=== PATIENT | female | born 1955 | race Hispanic/Latino ===

== ENCOUNTER 2024-01-06 14:56 | Emergency (ER) | payer OTHER ==
[~2024-01-06] VITALS: Ht 154.9 cm; Wt 77.1 kg
[2024-01-06 15:30] LABS: APPEARANCE,URINE CLEAR (CLEAR); BILIRUBIN,URINE NEGATIVE (NEGATIVE); COLOR,URINE LIGHT-YELLOW (YELLOW); GLUCOSE, URINE (UA) NEGATIVE (NEGATIVE); KETONES,URINE NEGATIVE (NEGATIVE); LEUKOCYTE ESTERASE ,URINE NEGATIVE Leu/uL (NEGATIVE); NITRATE,URINE NEGATIVE (NEGATIVE); OCCULT BLOOD,URINE NEGATIVE (NEGATIVE); PH,URINE 6.5 (5.0-8.0); PROTEIN,URINE NEGATIVE (NEGATIVE); UROBILINOGEN,URINE 0.2 mg/dL (0.2-1.0)
[2024-01-06] MEDS: KETOROLAC 15MG/ML VIAL (15MG/ML) IM ONE (15:30)
[2024-01-06] MEDS ORDERED: KETOROLAC 15MG/ML VIAL (15MG/ML) IV ONE (15:30)
[2024-01-06 15:33] LABS: ADD UA MICROSCOPIC NO
[2024-01-06 15:35] LABS: BASOPHILS # (AUTO) 0.03 K/uL (0.00-0.20); BASOPHILS % (AUTO) 0.4 % (0.0-5.0); EOSINOPHILS # (AUTO) 0.04 K/uL (0.00-0.70); EOSINOPHILS % (AUTO) 0.5 % (0.0-8.0); HEMATOCRIT 36.6 % (36-48); IMMATURE GRANULOCYTE ABSOLUTE 0.02 K/uL (0-1); LYMPHOCYTES % (AUTO) 23.4 % (21.0-51.0); MEAN CORPUSCULAR HEMOGLOBIN 31.5 pg (27.0-33.0); MEAN CORPUSCULAR HGB CONC 34.7 g/dL (32.0-36.0); MEAN CORPUSCULAR VOLUME 90.8 fL (79-99); MONOCYTES # (AUTO) 0.7 K/uL (0.1-1.0); MONOCYTES % (AUTO) 8.2 % (3.0-13.0); NEUTROPHILS # (AUTO) 5.7 K/uL (1.8-7.7); NEUTROPHILS % (AUTO) 67.3 % (40.0-77.0); PLATELET COUNT (AUTO) 281 K/uL (130-400); RED BLOOD CELL COUNT(AUTO) 4.03 MIL/uL (4.00-5.50); RED CELL DISTRIBUTION WIDTH 12.5 % (11.0-15.5); WHITE BLOOD COUNT (AUTO) 8.4 K/uL (4.8-10.8)
[2024-01-06 15:51] LABS: ALBUMIN 3.7 g/dL (3.5-5.0); BILIRUBIN,TOTAL 0.4 mg/dL (0.2-1.0); CREATININE 0.7 mg/dL (0.5-1.0); POTASSIUM 3.1 mmol/L (3.5-5.1); TOTAL PROTEIN, SERUM 7.6 g/dL (6.0-8.3)
[2024-01-06] MEDS: POTASSIUM BICARB/CIT AC 25 MEQ TABLET.EFF ONE (17:22)
[2024-01-06] MEDS ORDERED: PHEN-847 PO (17:23)
[2024-01-06 17:28] VITALS: BP 152/74; PULSE 82; RESP 18; O2SAT 97
[2024-01-06] MEDS ORDERED: POTASSIUM BICARB/CIT AC 25 MEQ TABLET.EFF PO SCH (17:30)
== END 2024-01-06 17:35 | disposition home or self-care (01) ==
LOC: EDH 14:56
DX: E87.6 Hypokalemia (principal); R30.0 Dysuria; E78.00 Pure hypercholesterolemia, unspecified; I10 Essential (primary) hypertension; Z88.1 Allergy status to other antibiotic agents; Z88.2 Allergy status to sulfonamides; Z88.8 Allergy status to other drugs, medicaments and biological substances; Z98.890 Other specified postprocedural states
CPT/HCPCS: 99283; 80053; 83690; 85025; 81003; 36415; 96372; J1885

== ENCOUNTER 2024-12-18 12:09 | Inpatient (IN) | payer OTHER ==
[~2024-12-18] VITALS: Ht 152.4 cm; Wt 81.7 kg
[~2024-12-18 12:09] MED LIST: PHEN-847 PO
[2024-12-18] MEDS ORDERED: DiphenhydrAMINE HCL 25 MG CAPSULE PO PRN (12:30)
[2024-12-18] MEDS ORDERED: ondanSETRON 4MG INJ IVP PRN (12:30)
[2024-12-18] MEDS ORDERED: HYDROcodone/APAP 5/325 1 TAB TABLET PO PRN (12:30)
[2024-12-18] MEDS ORDERED: NITROGLYCERIN 0.4 MG SL TAB SL PRN (12:30)
[2024-12-18] MEDS ORDERED: guaiFENesin-DM 200/20MG 10ML PO PRN (12:30)
[2024-12-18] MEDS ORDERED: ZOLPidem TARTrate 5 MG TAB PO PRN (12:30)
[2024-12-18 13:09] LABS: HEMATOCRIT 37.2 % (36-48); IMMATURE GRANULOCYTE ABSOLUTE 0.03 K/uL (0-1); LYMPHOCYTES # (AUTO) 0.7 K/uL (1.0-4.8); LYMPHOCYTES % (AUTO) 11.4 % (21.0-51.0); MEAN CORPUSCULAR HEMOGLOBIN 31.7 pg (27.0-33.0); MEAN CORPUSCULAR HGB CONC 33.9 g/dL (32.0-36.0); MEAN CORPUSCULAR VOLUME 93.5 fL (79-99); MONOCYTES # (AUTO) 0.1 K/uL (0.1-1.0); MONOCYTES % (AUTO) 1.9 % (3.0-13.0); NEUTROPHILS # (AUTO) 4.9 K/uL (1.8-7.7); NEUTROPHILS % (AUTO) 86.2 % (40.0-77.0); PLATELET COUNT (AUTO) 273 K/uL (130-400); RED BLOOD CELL COUNT(AUTO) 3.98 MIL/uL (4.00-5.50); RED CELL DISTRIBUTION WIDTH 12.3 % (11.0-15.5); WHITE BLOOD COUNT (AUTO) 5.7 K/uL (4.8-10.8)
[2024-12-18 13:22] LABS: CARBON DIOXIDE 27 mmol/L (21-32); CHLORIDE 103 mmol/L (101-111); CREATININE 0.7 mg/dL (0.5-1.0); GLOMERULAR FILTR. RATE CALC 93 mL/min (>90); GLUCOSE,RANDOM 160 mg/dL (70-105); SODIUM SERUM 139 mmol/L (136-145); UREA NITROGEN, BLOOD 15 mg/dL (7-18)
[2024-12-18 13:31] LABS: ALANINE AMINOTRANSFERASE 25 U/L (12-78); ALBUMIN 3.8 g/dL (3.5-5.0); ASPARTATE AMINOTRANSFERASE 17 U/L (10-37); BILIRUBIN,DIRECT 0.1 mg/dL (0.0-0.3); BILIRUBIN,TOTAL 0.3 mg/dL (0.2-1.0); CREATINE KINASE, TOTAL 36 U/L (21-232); TOTAL PROTEIN, SERUM 7.8 g/dL (6.0-8.3)
[2024-12-18] MEDS ORDERED: OLME5TAB29 PO (13:39)
[2024-12-18] MEDS ORDERED: ALEN70TA80 PO (13:39)
[2024-12-18] MEDS ORDERED: GABA-529 PO (13:39)
--- NOTE | 2024-12-18 14:01 | HMCIMG ---
Exam Type: CERV SPINE 2-3VWS Clinical Information: PAIN Comparison: None Findings and impression: Straightening consistent with spasm. Status post anterior fusion and disc fusion C3-C6 with adequate postoperative alignment. No fractures or acute complications.
--- NOTE | 2024-12-18 14:03 | HMCIMG ---
Exam Type: THORACIC SPINE SERIES 3 views History: PAIN Comparison: none Findings: Spondylitic and degenerative changes of the dorsal spine are seen. There are degenerative changes of the apophyseal joints as well. The disc spaces are preserved. No fractures or dislocations are noted. No paraspinal soft tissue abnormalities are seen. Impression: 1. DEGENERATIVE CHANGES OF THE SPINE. NO ACUTE FRACTURES OR DISLOCATIONS NOTED AT THIS TIME.
[2024-12-18 14:11] VITALS: BP 162/89; PULSE 84; RESP 14; TEMP 98.8
[2024-12-18] MEDS: acetaMINOPHEN 325 MG TAB PO PRN (14:26)
[2024-12-18] MEDS: BACLOFEN 10 MG TABLET PO SCH (14:26)
[2024-12-18] MEDS: cloNIDine HCL 0.1 MG TABLET PO PRN (14:26)
[2024-12-18] MEDS: 1/2 NS 1000ML 1,000 ML IV SCH (14:26)
[2024-12-18 15:49] VITALS: BP 111/61; PULSE 80; RESP 19; TEMP 98.1
--- NOTE | 2024-12-18 16:49 | NUR ---
DCP: HOME Pt currently lives with Phill Lundy [phone]. Pt does not have any DME, home health, or provider services. Pt is able to complete ADLs independently. PCP is Dr. Rolan Nayak. At [place] pt will return home and family will assist with transportation. Addendum: 12/18/24 at 1651 by CORTEZ BRINK SS Amended: Links added.
[2024-12-18 19:46] LABS: CREATINE KINASE, TOTAL 31 U/L (21-232)
--- NOTE | 2024-12-18 20:01 | HP ---
HISTORY OF PRESENT ILLNESS: The patient is direct admission from my office. The patient came complaining of chest pain since last night, associated with shortness of breath and increase in blood pressure. The patient referred that the pain started at midnight, initially started on upper back pain, radiated to her anterior chest, was unable to tolerate. She was almost going to the Emergency Room, decided to wait to come to my office. ALLERGIES: LISINOPRIL, BACTRIM, CELEBREX, AND ROCEPHIN. PAST MEDICAL HISTORY: Hypertension, dyslipidemia, osteoporosis, peripheral neuropathy, and dorsalgia. MEDICATIONS: Include baclofen 5 mg, pantoprazole, rosuvastatin, olmesartan 5, gabapentin, hydrocodone/acetaminophen, and alendronate. PHYSICAL EXAMINATION: GENERAL: She is currently awake, alert, and oriented to person and place, in distress due to pain. VITAL SIGNS: Blood pressure 144/80, pulse 103, respirations 16, and temperature 98.4. HEENT: Normocephalic and atraumatic. LUNGS: Clear to auscultation. HEART: S1 and S2 are distant. ABDOMEN: Soft and nontender. No masses. EXTREMITIES: No clubbing or cyanosis. NEUROLOGIC: Cranial nerves 2 through 12 are grossly preserved. IMAGING DATA: EKG shows normal sinus rhythm, [address] per minute. No acute ST-T changes. ASSESSMENT AND PLAN: * Chest pain. The patient with cardiovascular risk factors. She will be admitted for assessment of chest pain. Start her on standard treatment for acute coronary syndrome with aspirin, Plavix, and Lovenox. Cardiac enzymes every 6 hours x 3. Lexiscan stress test in the a.m. when stable. * Hypertension. Continue with her home medications. Reassess with results. * Dyslipidemia. Continue rosuvastatin. * Upper back pain. X-ray of the cervical spine and thoracic spine will be requested. Continue with analgesics and muscle relaxants. TID: [id number] RECEIPT: [id number]
[2024-12-18] MEDS: ENOXAPARIN SODIUM 80 MG/0.8 ML SQ SCH (20:36)
[2024-12-19] VITALS (7 sets, daily range): BP systolic 108–145; BP diastolic 56–78; PULSE 50–76; RESP 16–18; TEMP 97.7–98.6; O2SAT 98
[2024-12-19] MEDS ORDERED: ROSU20TA98 PO (00:21)
[2024-12-19] MEDS ORDERED: PANT40TA54 PO (00:21)
[2024-12-19] MEDS ORDERED: BACL5TAB PO (00:21)
[2024-12-19] MEDS ORDERED: HYDR-4060 PO (00:21)
[2024-12-19 01:12] LABS: BASOPHILS # (AUTO) 0.01 K/uL (0.00-0.20); BASOPHILS % (AUTO) 0.2 % (0.0-5.0); EOSINOPHILS # (AUTO) 0.01 K/uL (0.00-0.70); EOSINOPHILS % (AUTO) 0.2 % (0.0-8.0); HEMATOCRIT 29.5 % (36-48); IMMATURE GRANULOCYTE ABSOLUTE 0.01 K/uL (0-1); LYMPHOCYTES # (AUTO) 1.3 K/uL (1.0-4.8); LYMPHOCYTES % (AUTO) 22.2 % (21.0-51.0); MEAN CORPUSCULAR HEMOGLOBIN 32.4 pg (27.0-33.0); MEAN CORPUSCULAR HGB CONC 35.3 g/dL (32.0-36.0); MEAN CORPUSCULAR VOLUME 91.9 fL (79-99); MONOCYTES # (AUTO) 0.8 K/uL (0.1-1.0); MONOCYTES % (AUTO) 12.8 % (3.0-13.0); NEUTROPHILS # (AUTO) 3.8 K/uL (1.8-7.7); NEUTROPHILS % (AUTO) 64.4 % (40.0-77.0); PLATELET COUNT (AUTO) 218 K/uL (130-400); RED BLOOD CELL COUNT(AUTO) 3.21 MIL/uL (4.00-5.50); RED CELL DISTRIBUTION WIDTH 12.5 % (11.0-15.5); WHITE BLOOD COUNT (AUTO) 5.9 K/uL (4.8-10.8)
[2024-12-19 01:29] LABS: ALANINE AMINOTRANSFERASE 19 U/L (12-78); ASPARTATE AMINOTRANSFERASE 13 U/L (10-37); BILIRUBIN,DIRECT 0.1 mg/dL (0.0-0.3); BILIRUBIN,TOTAL 0.3 mg/dL (0.2-1.0); CARBON DIOXIDE 31 mmol/L (21-32); CHLORIDE 105 mmol/L (101-111); CREATINE KINASE, TOTAL 32 U/L (21-232); CREATININE 0.6 mg/dL (0.5-1.0); GLOMERULAR FILTR. RATE CALC 97 mL/min (>90); GLUCOSE,RANDOM 134 mg/dL (70-105); POTASSIUM 3.9 mmol/L (3.5-5.1); SODIUM SERUM 141 mmol/L (136-145); TOTAL PROTEIN, SERUM 6.3 g/dL (6.0-8.3); UREA NITROGEN, BLOOD 15 mg/dL (7-18)
--- NOTE | 2024-12-19 06:45 | NUR ---
DEON SCAN DELAY I WALKED INTO THE ROOM TO DO BEDSIDE REPORT, PATIENT WAS DRINKING CUP OF COFFEE AND EATING BREAKFAST. DR. DAMON AND NUCLEAR MED MADE AWARE AND POSTPONED DEON SCAN TILL TOMORROW IN THE MORNING
[2024-12-19] MEDS: PANTOPrazole 40 MG TAB DR PO SCH (08:11)
[2024-12-19] MEDS: ASPIRIN 81MG CHEW TAB PO SCH (08:12)
[2024-12-19] MEDS: LoSARTan 100 MG TABLET PO SCH (08:12)
[2024-12-19] MEDS: cloPIDOgrel 75MG TAB PO SCH (08:12)
--- NOTE | 2024-12-19 08:41 | NUR ---
AMARILIS OTT @ 0800HRS ISAMAR WALEDN IS AWARE; PT WAS NOT NPO AND HAD COFFEE. EXAM WAS EXPLAINED TO THE PT AND EXAM WILL BE R/S FOR 12/20/2024 @ 0630HRS
--- NOTE | 2024-12-19 08:48 | EKG ---
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
--- NOTE | 2024-12-19 14:27 | HMCIMG ---
Exam Type: CT cervical spine without contrast Clinical Information: CERVICAL PAIN Comparison: None Technique: Spiral axial images were performed from the base of the skull down to the thoracic vertebral bodies. Both sagittal and coronal reconstructions were performed. CT Dose Index (CTDI): 12.85 mGy Dose Length Product (DLP): 282.6 total Findings: There are degenerative changes. Degenerative disc disease is noted at multiple levels. Status post anterior fusion and disc fusion C3-C6. There is adequate alignment and preservation of normal cervial lordosis. There is facet hypertrophy at multiple levels. IMPRESSION: Degenerative and postoperative changes as noted. No acute pathology. No fractures seen. This study was performed using dose reduction techniques to include automated exposure control and/or adjustment of the mA and/or kV according to patient size.
--- NOTE | 2024-12-19 23:46 | PN ---
SUBJECTIVE: The patient is feeling improved though there is still persistent chest pain. The patient is scheduled to have a Lexiscan tomorrow. She is still complaining of persistent upper back pain and had an x-ray of the neck and thoracic spine. OBJECTIVE: GENERAL: She is currently awake, alert and oriented to person, time, and place, not in distress. VITAL SIGNS: Blood pressure is 116/56, pulse 68, respirations 18. HEENT: Normocephalic, atraumatic. LUNGS: Clear to auscultation. HEART: S1, S2 are distant. ABDOMEN: Soft, nontender. No masses. EXTREMITIES: No clubbing or cyanosis. LABORATORY DATA AND X-RAYS: Cervical spine x-ray shows degenerative and postoperative changes. No acute pathology. No fracture seen. Thoracic spine x-rays show degenerative changes. No fracture or dislocation. Labs; WBC count 5.9, hemoglobin 10.4, platelets 218, sodium 141, potassium 3.9, BUN 15, creatinine 0.6, glucose 134, calcium 8.3, troponin within normal limits 3 times. ASSESSMENT AND PLAN: * Chest pain. Negative troponins. The patient is scheduled to have a Lexiscan stress test tomorrow. * Cervical spine pain. X-ray is within normal limits. We are going to have an MRI of the cervical spine. * Hypertension, controlled. * Dyslipidemia, controlled. Follow up with results of tests. TID: [id number] RECEIPT: [id number]
[2024-12-20] VITALS (7 sets, daily range): BP systolic 126–164; BP diastolic 64–87; PULSE 62–73; RESP 17–18; TEMP 98–98.9; O2SAT 98
[2024-12-20 04:09] LABS: HEMATOCRIT 30.9 % (36-48); MEAN CORPUSCULAR HEMOGLOBIN 31.3 pg (27.0-33.0); MEAN CORPUSCULAR VOLUME 92.2 fL (79-99); RED BLOOD CELL COUNT(AUTO) 3.35 MIL/uL (4.00-5.50); WHITE BLOOD COUNT (AUTO) 6.1 K/uL (4.8-10.8)
[2024-12-20 04:20] LABS: CREATININE 0.6 mg/dL (0.5-1.0); POTASSIUM 3.8 mmol/L (3.5-5.1)
[2024-12-20] MEDS ORDERED: REGADENOSON 0.4 MG/5 ML PF SYG IVP ONE (08:04)
--- NOTE | 2024-12-20 13:23 | HMCSR ---
APPROVED REPORT Height: 5 ft 0in Weight: 180 lbs TEST INDICATIONS ACS The imaging protocol used to acquire images was Rest Tc-99m/stress Tc-99m 1 day Consent: The procedure was explained and understood by the patient. Informerd consent was witnessed Ashley Cui RN First, low dose rest was performed then high dose stress. RESTING DATA: The resting ekg shows: NSR Rest SPECT myocardial perfusion imaging was performed in supine position minutes following the intra venous injection of 11 mCi of Tc-99 Sestamibi. Time of rest injection: Date: 12/20/2024 Time of rest imaging: Date: 12/20/2024 PHARMACOLOGIC STRESS: Pharmacologic stress test was performed by injecting regadenoson 0.4 mg IV push followed by the intra venous injection of 29 mCi of Tc-99 Sestamibi. Time of stress injection: Date: 12/20/2024 Time of stress imaging: Date: 12/20/2024 Heart Rate at time of stress injection: 61 bpm. The images were gated to evaluate regional wall motion and calculate left ventricular ejection fracti on. STRESS DETAILS Reason for Termination: Infusion complete Stress Symptoms: Dyspnea Max HR Achieved: 99 bpm % of APMHR Achieved: 77 Max Blood Pressure: 153/78 mmHg Stress ECG: NSR Arrhythmia: No. ST Change: No. Study quality was good. Lung uptake was Normal. Artifact: No artifact LEFT VENTRICLE Size: The left ventricular size is normal. Systolic Function:The left ventricular systolic function is normal. Wall Motion: No regional wall motion abnormalities noted. The left ventricular ejection fraction was calculated to be 84%.TID = 1.03. LV PERFUSION Mid septal wall with small size mild severity reversible perfusion defect. RV Size/Shape Not well visualized. IMPRESSION Mildly abnormal pharmacologic nuclear stress test. Global LV Function: Normal Stress ECG Summary: Normal LV Perfusion Summary: Abnormal LV Viability Summary: Potentially viable myocardium Conclusion Stress LVEF 84% No ECG changes of ischemia Mid septal wall with small size mild severity reversible perfusion defect. Overall, low risk for cardiac events
--- NOTE | 2024-12-20 22:21 | CONS ---
CONSULT NOTE: CARDIOLOGY Reason for consult: Chest pain HPI/story at presentation: This is a pleasant 69-year-old female with past medical history as were present with complaints of chest discomfort to the emergency room. She was having atypical pressure-like sensation in the left side of her chest, nonradiating and nonexertional. She underwent stress testing that was read as low risk and cardiology was consulted for further evaluation and management. Subjective: 12/20/2024 no active chest pain Past medical history: See below Allergies, Meds See chart Review of systems Review of Systems Constitutional: Negative for chills and fever. HENT: Negative for ear discharge and ear pain. Eyes: Negative for photophobia and discharge. Respiratory: Negative for cough, sputum production and stridor. Cardiovascular: Negative for chest pain and palpitations. Gastrointestinal: Negative for diarrhea and vomiting. Genitourinary: Negative for frequency. Musculoskeletal: Negative for myalgias. Skin: Negative for rash. Neurological: Negative for focal weakness and seizures. Endo/Heme/Allergies: Negative for polydipsia. Psychiatric/Behavioral: Negative for hallucinations. Vitals see chart PHYSICAL EXAMINATION GENERAL: The patient is alert and oriented*3 HEENT: Nonicteric sclerae, non traumatic HEART: Regular rate and rhythm with no murmurs LUNGS: Clear to auscultation bilaterally ABDOMEN: No acute issues, non tender GENITAL, RECTAL: deferred SKIN: No rash NEUROLOGIC: NFND EXTREMITIES: No edema ASSESSMENT CHEST PAIN Atypical presentation Negative stress test, 12/2024 Low risk Nonexertional Negative troponins HYPERTENSION, HYPERLIPIDEMIA CORE MEASURES Not applicable OTHER MEDICAL PROBLEMS Reviewed PLAN 12/20/2024 we will get an echocardiogram to rule out known coronary etiology of chest discomfort. Reviewed stress images as well and appears to be moderate area of mild decreased tracer uptake in the anterior wall. Given nature of symptoms, we will also proceed with CTA coronary to further evaluate chest discomfort prior to discharge. Seen and examined 12/09/2024 around 9 PM. ATTESTATION I was involved substantially in the care of this patient Number and complexity of problems addressed: 1 acute illness with systemic features Amount and or complexity of data Review of prior external note(s) from each unique source: 2+ Ordering of each unique test : 0 Review of the result(s) of each unique test: 2+ Assessment requiring an independent historian(s): No Independent interpretation of test performed by another MD/QHCP/appropriate source (not separately reported) : No Discussion of management or test interpretation with external MD/QHCP/appropriate source (not separately reported) : No Risk status (cardiac, billing related): Moderate CLAUDIA ACOSTA MD Dec 20, 2024 22:21
[2024-12-21] VITALS (8 sets, daily range): BP systolic 135–160; BP diastolic 64–94; PULSE 61–84; RESP 18–20; TEMP 97.9–98.8; O2SAT 93–97
--- NOTE | 2024-12-21 00:18 | PN ---
SUBJECTIVE: The patient is comfortable, afebrile. No chest pain or palpitations. No nausea or vomiting. Neck pain is still persistent, but mild. Currently, she has had a Lexiscan stress test, pending results. OBJECTIVE: GENERAL: She is awake, alert, and oriented to person, time and place. VITAL SIGNS: Blood pressure 128/65, pulse 73, respirations 18. HEENT: Normocephalic, atraumatic. LUNGS: Clear to auscultation. HEART: S1, S2 are distant. ABDOMEN: Soft, nontender. EXTREMITIES: No clubbing or cyanosis. LABORATORY DATA: Lexiscan stress test pending. Cervical spine CT scan was reported as degenerative and postoperative changes. No acute pathology. No fracture seen. Status post anterior fusion and disk fusion C3-C6. ASSESSMENT AND PLAN: * Chest pain. Pending results of Lexiscan stress test. Plan to discharge if negative. * Cervical spine pain. Negative x-ray as well as CT scan. Continue to monitor. * Hypertension, controlled. * Dyslipidemia, controlled. * Plan to discharge if things are stable. TID: [id number] RECEIPT: [id number]
[2024-12-21] MEDS ORDERED: IOHEXOL 350 MG/ML 100ML INFUS..BTL IV ONE (10:12)
[2024-12-21] MEDS ORDERED: metoPROLOL tartRATE 1 MG/ML 5ML VIAL IV ONE (10:17)
--- NOTE | 2024-12-21 11:28 | HMCIMG ---
CT calcium scoring Clinical Information: CP Comparison: None CT Dose Index (CTDI): 13.30 mGy Dose Length Product (DLP): 186.18 total mGy-cm Findings: Calcium score 0. No identifiable calcification. The CT scan is not a complete chest CT. Covered portion is reviewed for incidental findings. No incidental findings seen. IMPRESSION: Calcium score as above. Calcium score reference stable: 0: No identifiable calcification 1- 10: Minimal identifiable calcification 11-100: Mild calcification 101- 400: Moderate calcification 401 and above: Significant calcification Automated exposure control and adequate statistical iterative reconstructions were utilized as dose reduction techniques.
--- NOTE | 2024-12-21 21:36 | HMCSR ---
APPROVED REPORT EXAM: Two-dimensional and M-mode echocardiogram with Doppler and color Doppler. INDICATION ICD: Chest Pain 2D Dimensions RVDd3.4 cmLVEF(%)26.6 (>50%)LVED Vol(simp.)74.0 mL IVSd0.9 (0.7-1.1cm)FS(%)12 %LVES Vol(simp.)30.0 mL LVDd3.1 (3.8-5.6cm)LA (2D)2.9 (1.6-4.0cm)LVEF(%, simp.)59 % PWd1.0 (0.7-1.1cm)Ao Root(2D)2.1 (2.0-3.7cm)LA ESV INDEX (BP)21.23 mL/m2 LVDs2.7 (2.5-4.0cm)LVOT diam2.0 (1.8-2.4cm) IVC diam0.9 cm Deformation Strain Apical 4-19.7 % Apical 2-19.1 % Apical 3-22.5 % Global Strain-20.4 % M-Mode Dimensions LA (MM)2.7 (1.6-4.0cm) Ao Root(MM)2.0 (2.0-3.7cm) Aortic Valve AoV Vmax1.4 m/Yasmine Peak GR8.3 mmHgLVOT Vmax1.1 m/s AoV VTI0.3 mAo Mean GR4.1 mmHgLVOT VTI0.25 m CE (VMAX)2.41 cm2AVA (VTI) 2.5 cm2 Mitral Valve MV E Vmax74.6 cm/sDECEL Ckfm347 ms MV A Vmax93.3 cm/sP 1/2 T57 ms E/A ratio0.8MVA (PHT)3.9 cm2 TDI E/E' Medial8.0E/E' Lateral5.8 Medial E' Peak V9.28 cm/sLateral E' Peak V12.96 cm/s Pulmonary Valve PV Vmax1.3 m/sPV VTI0.26 mPV Mean GR3.2 mmHg PV Peak GR6.5 mmHg Tricuspid Valve TR Vmax2.0 m/sRVSP16.8 mmHg TR Peak GR16.8 mmHg Left Ventricle The left ventricle is normal size. Normal wall motion There is normal left ventricular wall thickness . LVEF is 55-60%. The left ventricular diastolic function is normal. Right Ventricle The right ventricle is normal size. The right ventricular systolic function is normal. Atria The left atrium size is normal. The right atrium size is normal. Aortic Valve Aortic valve is not well visualized but no significant valvular abnormalities noted. No aortic regurg itation is present. There is no aortic valvular stenosis. Mitral Valve The mitral valve is normal in structure. Mitral regurgitation is trace. There is no mitral valve sten osis. Tricuspid Valve The tricuspid valve is normal in structure. There is trivial tricuspid valve regurgitation noted. Pulmonic Valve The pulmonary valve is not well seen There is no pulmonic valvular regurgitation. Great Vessels The aortic root is normal in size. The IVC is normal in size and collapses >50% with inspiration. Pericardium There is no pericardial effusion. Conclusion LVEF is 55-60%. The left ventricular diastolic function is normal. There is normal left ventricular wall thickness. The left ventricle is normal size. Normal wall motion There is no pericardial effusion. Normal pulmonary pressures Study quality was adequate
--- NOTE | 2024-12-21 21:46 | PN ---
CARDIOLOGY Reason for consult: Chest pain HPI/story at presentation: This is a pleasant 69-year-old female with past medical history as were present with complaints of chest discomfort to the emergency room. She was having atypical pressure-like sensation in the left side of her chest, nonradiating and nonexertional. She underwent stress testing that was read as low risk and ca rdiology was consulted for further evaluation and management. Subjective: 12/20/2024 no active chest pain 12/21/2024 no complaints Past medical history: See below Allergies, Meds See chart Review of systems Review of Systems Constitutional: Negative for chills and fever. HENT: Negative for ear discharge and ear pain. Eyes: Negative for photophobia and discharge. Respiratory: Negative for cough, sputum production and stridor. Cardiovascular: Negative for chest pain and palpitations. Gastrointestinal: Negative for diarrhea and vomiting. Genitourinary: Negative for frequency. Musculoskeletal: Negative for myalgias. Skin: Negative for rash. Neurological: Negative for focal weakness and seizures. Endo/Heme/Allergies: Negative for polydipsia. Psychiatric/Behavioral: Negative for hallucinations. Vitals see chart PHYSICAL EXAMINATION GENERAL: The patient is alert and oriented*3 HEENT: Nonicteric sclerae, non traumatic HEART: Regular rate and rhythm with no murmurs LUNGS: Clear to auscultation bilaterally ABDOMEN: No acute issues, non tender GENITAL, RECTAL: deferred SKIN: No rash NEUROLOGIC: NFND EXTREMITIES: No edema ASSESSMENT CHEST PAIN Atypical presentation Negative stress test, 12/2024 Low risk Nonexertional Negative troponins HYPERTENSION, HYPERLIPIDEMIA CORE MEASURES Not applicable OTHER MEDICAL PROBLEMS Reviewed PLAN 12/20/2024 we will get an echocardiogram to rule out known coronary etiology of chest discomfort. Reviewed stress images as well and appears to be moderate area of mild decreased tracer uptake in the anterior wall. Given nature of symptoms, we will also proceed with CTA coronary to further evaluate chest discomfort prior to discharge. Seen and examined 12/09/2024 around 9 PM. 12/21/2024 Doing well, asymptomatic, echocardiogram was normal, CTA coronary with mild disease and was otherwise normal. CT calcium score was reported as 0, however, this is inaccurate. This is likely less than 100. Heart flow study still pending. If this is negative, can likely be discharged home tomorrow. Seen and examined 12/21/2024 at around 8 PM. ATTESTATION I was involved substantially in the care of this patient Number and complexity of problems addressed: 1 acute illness with systemic features Amount and or complexity of data Review of prior external note(s) from each unique source: 2+ Ordering of each unique test : 0 Review of the result(s) of each unique test: 2+ Assessment requiring an independent historian(s): No Independent interpretation of test performed by another MD/QHCP/appropriate source (not separately reported) : No Discussion of management or test interpretation with external MD/QHCP/appropriate source (not separately reported) : No Risk status (cardiac, billing related): Moderate Vitals/Labs Vital Signs Date Time Temp Pulse Resp B/P (MAP) Pulse Ox O2 Delivery O2 Flow Rate FiO2 12/21/24 20:00 97.9 71 20 149/76 93 Room Air 12/21/24 16:00 21 12/21/24 08:00 0 Medications Current Medications Diphenhydramine HCl 25 mg Q4HPRN PRN PO; Start 12/18/24 at 12:30; Stop 01/17/25 at 12:29 Acetaminophen 650 mg Q6H PRN PO Last administered on 12/20/24at 09:10; Start 12/18/24 at 12:30; Stop 01/17/25 at 12:29 Ondansetron HCl 4 mg Q6H PRN IVP; Start 12/18/24 at 12:30; Stop 01/17/25 at 12:29 Zolpidem Tartrate 5 mg HS PRN PO; Start 12/18/24 at 12:30; Stop 01/17/25 at 12:29 Nitroglycerin 0.4 mg AD PRN SL; Start 12/18/24 at 12:30; Stop 01/17/25 at 12:29 Guaifenesin/ Dextromethorphan 10 ml Q4H PRN PO; Start 12/18/24 at 12:30; Stop 01/17/25 at 12:29 Aspirin 81 mg DAILY PO Last administered on 12/21/24at 09:33; Start 12/19/24 at 09:00; Stop 01/18/25 at 08:59 Clopidogrel Bisulfate 75 mg DAILY PO Last administered on 12/21/24at 09:33; Start 12/19/24 at 09:00; Stop 01/18/25 at 08:59 Enoxaparin Sodium 80 mg BID SQ Last administered on 12/21/24at 20:09; Start 12/18/24 at 21:00; Stop 01/17/25 at 20:59 Acetaminophen/ Hydrocodone Bitart 1 tab Q8H PRN PO; Start 12/18/24 at 12:30; Stop 12/23/24 at 12:29 Baclofen 10 mg TID PO Last administered on 12/21/24at 20:08; Start 12/18/24 at 14:00; Stop 01/17/25 at 13:59 Pantoprazole Sodium 40 mg DAILY PO Last administered on 12/21/24at 09:33; Start 12/19/24 at 09:00; Stop 01/18/25 at 08:59 Losartan Potassium 100 mg DAILY PO Last administered on 12/21/24at 09:32; Start 12/19/24 at 09:00; Stop 01/18/25 at 08:59 Sodium Chloride 1,000 ml @ 30 mls/hr Q24H IV Last administered on 12/21/24at 13:15; Start 12/18/24 at 12:30; Stop 01/17/25 at 12:29 Clonidine HCl 0.1 mg Q4H PRN PO Last administered on 12/18/24at 14:26; Start 12/18/24 at 14:30; Stop 01/17/25 at 14:29 Regadenoson 0.4 mg STK-MED ONCE IVP; Start 12/20/24 at 08:04; Stop 12/20/24 at 08:04; Status DC Iohexol 35,000 mg STK-MED ONCE IV; Start 12/21/24 at 10:12; Stop 12/21/24 at 10:12; Status DC Metoprolol Tartrate 5 mg STK-MED ONCE IV; Start 12/21/24 at 10:17; Stop 12/21/24 at 10:17; Status DC CLAUDIA ACOSTA MD Dec 21, 2024 21:46
[2024-12-22 04:00] VITALS: BP 102/62; PULSE 70; RESP 20; TEMP 98
--- NOTE | 2024-12-22 07:14 | NUR ---
Dr. Fong rounding on patient. Patient to be discharged once Dr. Damon clears for d/c.
[2024-12-22 08:00] VITALS: BP 144/81; PULSE 69; RESP 18; TEMP 98.1
[2024-12-22 08:45] VITALS: O2SAT 98
--- NOTE | 2024-12-22 09:07 | CARDIOLOGY ---
RAD REPORT: [facility] CT ANGIO RADIOLOGY REPORT: CORONARY CT ANGIOGRAPHY DATE: Dec 22, 2024 QUALITY: Excellent CLINICAL HISTORY AND INDICATION: [ ] TECHNIQUE: After obtaining a preliminary metropolitan editor image, contrast imaging performed on an Aquillon [id number] scanner. A dedicated, limited window, coronary imaging protocol was used, with single breath-hold, retrospective ECG gating, and au tomated arrhythmia rejection. 100 cc of low osmolar contrast agent: Omnipaque 350 was delivered via a 18-gauge IV catheter in the right antecubital fossa, using a power injector and followed by 60 cc of normal saline bolus as a chaser. Collimated images were reformatted at 0.5 mm intervals, and sent to an offline independent workstation for interpretation, using 3D anatomic reconstructions: Curved multiplanar reconstructions, maximum intensity projections, and multiplanar imaging. No metoprolol was administered prior to scanning due to low baseline heart rate. 0.4 mg SL nitroglycerin was given. CORONARY ARTERY DESCRIPTIONS: The coronary arteries arise in normal position. Left main coronary artery: Normal caliber vessel that bifurcates into the LAD and LCx. No stenosis. Left anterior descending coronary artery: Normal caliber vessel and gives rise to diagonal and septal branches. Mild prox calcified plaque, mild stenosis Left circumflex coronary artery: Normal caliber, nondominant and gives rise to a large OM branch. Mild stenosis with mild calcified plaque Right coronary artery: Large, dominant vessel giving rise to the PL and PDA branches. No stenosis. CONCLUSION: Mild calcified proximal plaque of the LAD and LCx without significant stenosis CLAUDIA ACOSTA MD Dec 22, 2024 09:07
--- NOTE | 2024-12-22 11:08 | NUR ---
PATIENT ALERT AND ORIENTED X4, BEING DISCHARGED HOME. PATIENT EDUCATED TO FOLLOW UP WITH DR. DAMON AND DR. MCGEE IN 1 WEEK. PRESCRIPTION FOR ASA AND LOSARTAN GIVEN, MEDICATIONS EXPLAINED INCLUDING SIDE EFFECTS, NO OTHER BLOOD THINNERS NEEDED PER DR. MCGEE. PATIENT EDUCATED TO RESUME HOME MEDS EXCEPT OLMESARTAN (PATIENT HAS NEW PRESCRIPTION FOR LOSARTAN). RT AC IV REMOVED WITHOUT COMPLICATIONS. ALL QUESTIONS ANSWERED, PATIENT VERBALIZED COMPLETE UNDERSTANDING. PATIENT GATHERED ALL BELONGINGS AND TOOK WITH HER AT [place]. AWAITING TO SPEAKING UNIT ASSEMBLER PATIENT.
[2024-12-22 11:30] VITALS: BP 122/67; PULSE 69; RESP 18; TEMP 97.4
--- NOTE | 2024-12-22 12:20 | NUR ---
PICKED UP PATIENT AT THIS TIME. PATIENT TOOK ALL BELONGINGS.
--- NOTE | 2024-12-23 00:05 | DS ---
ADMITTING DIAGNOSES: Angina, chest pain, . OTHER DIAGNOSES: Hypertension and lumbar pain. DISCHARGE DIAGNOSES: Chest pain and cardiac workup negative. Hypertension is stable. Rest of the diagnoses stable. CONDITION AT TIME OF DISCHARGE: Stable. DISCHARGE MEDICATIONS: Continue with home medications. HOSPITAL COURSE: The patient was hospitalized with angina. The patient had a cardiac workup done and evaluation by the Cardiology. The patient's condition is stable. Discharged to home. Hypertension is stable. Lumbar pain is stable. TID: [id number] RECEIPT: [id number]
--- NOTE | 2024-12-25 14:44 | NUR ---
Transitional Phone Call Attempted to call twice, left message [phone] and no return call.
== END 2024-12-22 12:20 | disposition home or self-care (01) | DRG 311 ==
LOC: EDH 12:09 → EDHIP 12:10 → 4CH 12-19 00:03
PROVIDERS: ADMIT Internal Medicine; ATTEND Internal Medicine
PROC: 4A12XM4 Monitoring of Cardiac Stress, External Approach (ICD-10-PCS; principal; 2024-12-20)
PROC: 3E073KZ Introduction of Other Diagnostic Substance into Coronary Artery, Percutaneous Approach (ICD-10-PCS; 2024-12-20)
DX: I20.9 Angina pectoris, unspecified (principal); M54.6 Pain in thoracic spine; M81.0 Age-related osteoporosis without current pathological fracture; G62.9 Polyneuropathy, unspecified; I10 Essential (primary) hypertension; E78.5 Hyperlipidemia, unspecified; M54.50 Low back pain, unspecified
CPT/HCPCS: 36415; 72040; 72072; 72125; 75574; 78452; 80048; 80053; 80076; 82550; 84484; 85025; 85027; 93005; 93017; 93306; 93356; 99285; A9500; G0378; J1650; J2785; J3490; Q9967

== ENCOUNTER → 2025-01-15 | Outpatient (CLI) | payer OTHER ==
[~2025-01-15] MED LIST changes: +ALEN70TA80 PO; +BACL5TAB PO; +GABA-529 PO; +HYDR-4060 PO; +PANT40TA54 PO; -PHEN-847 PO; +ROSU20TA98 PO
--- NOTE | 2025-01-16 06:49 | HMCIMG ---
EXAMINATION: DUPLEX ULTRASOUND EXAMINATION OF THE BILATERAL LOWER EXTREMITY ARTERIES. CLINICAL HISTORY: Pain. COMPARISON: None. FINDINGS: Peak systolic velocities within the right lower arteries are as follows: Common femoral artery: 136 cm/s. Superficial femoral artery: 160 cm/s at proximal, 122 cm/s at mid, and 148 cm/s at distal segments. Popliteal artery: 87 cm/s at proximal and 120 cm/s at distal segments. Posterior tibial artery: 74 cm/s. Anterior tibial artery: 84 cm/s. Dorsalis pedis artery: 66 cm/s. The right lower limb arteries demonstrate triphasic to biphasic waveforms in all arteries. Peak systolic velocities within the left lower arteries are as follows: Common femoral artery: 119 cm/s. Superficial femoral artery: 124 cm/s at proximal, 122 cm/s at mid, and 106 cm/s at distal segments. Popliteal artery: 90 cm/s at proximal and 98 cm/s at distal segments. Posterior tibial artery: 52 cm/s. Anterior tibial artery: 66 cm/s. Dorsalis pedis artery: 44 cm/s. The left lower limb arteries demonstrate triphasic to biphasic waveforms in all arteries. There is intimal wall thickening in both the lower limb arteries. IMPRESSION: Mild intimal wall thickening in both the lower limb arteries.Both lower limb arteries demonstrate triphasic to biphasic waveforms. No flow limiting lesions. /[place]
== END | disposition home or self-care (01) ==
LOC: RAH 12-24 13:50
PROVIDERS: ATTEND Internal Medicine
DX: I83.813 Varicose veins of bilateral lower extremities with pain (principal); I77.89 Other specified disorders of arteries and arterioles; M79.604 Pain in right leg; M79.605 Pain in left leg
CPT/HCPCS: 93925